=== PATIENT | female | born 1965 | race Caucasian/White ===

== ENCOUNTER 2021-04-30 15:37 | Emergency (ER) | payer BC ==
[2021-04-30] MEDS ORDERED: SODIUM CHLORIDE 0.9% 1,000 ML IV STA ×2 (16:11)
--- NOTE | 2021-04-30 16:36 | ED Physician Documentation ---
PD HPI ABD PAIN - Stated complaint Stated Complaint: ABD PX/NAUSEA - Chief complaint Chief Complaint: Abd Pain - History obtained from History obtained from: Patient - Additional information Additional information: 55-year-old woman with history of diverticulitis and colitis, hysterectomy, appendectomy, and tubal ligation presents with nausea starting yesterday. She was at the doctor's office for a consult regarding her localized breast cancer which she has not undergone any treatment yet. She was retching and then developed lower abdominal pain. Then she had 3 fairly normal bowel movements w hich has been followed by dark red blood per rectum not mixed with stool which has been continuous ever since. Review of Systems Ten Systems: 10 systems reviewed and negative Constitutional: reports: Chills, Sweats Throat: reports: Reviewed and negative Cardiac: reports: Reviewed and negative Respiratory: reports: Reviewed and negative PD PAST MEDICAL HISTORY - Past Medical History Neuro: None - Past Surgical History General: Appendectomy /TEST DESIGNER: Tubal ligation, Hysterectomy HEENT: Tonsil/Adenoidectomy - Present Medications Home Medications: Ambulatory Orders Medication Instructions Recorded Confirmed Zolpidem Tartrate [Ambien] 10 mg PO DAILY PM 03/19/21 04/30/21 Ciprofloxacin HCl [Cipro] 500 mg PO BID #20 tablet 04/30/21 HYDROcod/ACETAM 5/325 [[facility] 5/325] 1 - 2 tab PO Q6H PRN #15 tablet 04/30/21 Omeprazole 40 mg PO DAILY 04/30/21 04/30/21 Ondansetron Odt [Zofran] 4 mg TL Q6H PRN #10 tablet 04/30/21 metroNIDAZOLE [Flagyl] 500 mg PO TID 7 Days #30 tablet 04/30/21 - Allergies Allergies/Adverse Reactions: Allergies Allergy/AdvReac Type Severity Reaction Status Date / Time Corticosteroids Allergy Edema Verified 04/30/21 15:51 (Glucocorticoids) Sulfa (Sulfonamide Allergy Edema Verified 04/30/21 15:51 Antibiotics) - Social History Does the pt smoke?: No Smoking Status: Former smoker Does the pt drink ETOH?: No Does the pt have substance abuse?: No PD ED PE NORMAL - Vitals Vital signs reviewed: Yes - General General: Alert and oriented X 3, No acute distress - Cardiac Cardiac: RRR, No murmur - Respiratory Respiratory: No respiratory distress - Abdomen Abdomen: Normal bowel sounds, Soft, Non tender - Back Back: No CVA TTP, No spinal TTP - Derm Derm: Normal color, Warm and dry - Extremities Extremities: No edema, No calf tenderness / cord - Neuro Neuro: Alert and oriented X 3, Normal speech Results - Vitals Vitals: Vital Signs - 24 hr 04/30/21 04/30/21 04/30/21 15:45 17:16 18:10 Temperature 36.7 C 36.5 C Heart Rate 83 76 66 Respiratory 16 20 18 Rate Blood Pressure 120/38 L 116/51 L 112/59 L O2 Saturation 96 92 99 Oxygen O2 Source Room air - Labs Labs: Laboratory Tests 04/30/21 04/30/21 04/30/21 16:37 16:45 16:45 WBC 10.6 RBC 4.39 Hgb 13.7 Hct 42.2 MCV 96.1 MCH 31.2 H MCHC 32.5 RDW 13.2 Plt Count 309 MPV 9.6 Neut # (Auto) 7.1 H Lymph # (Auto) 2.4 Lyon # (Auto) 0.7 Eos # (Auto) 0.2 Baso # (Auto) 0.1 Absolute Nucleated RBC 0.00 Nucleated RBC % 0.0 Sodium 140 Potassium 3.8 Chloride 103 Carbon Dioxide 29 Anion Gap 8.0 BUN 9 Creatinine 0.6 Estimated GFR (MDRD) 103 Glucose 94 Calcium 9.3 Total Bilirubin 1.1 H AST 20 ALT 17 Alkaline Phosphatase 38 L Total Protein 7.2 Albumin 4.3 Globulin 2.9 Albumin/Globulin Ratio 1.5 Lipase 28 Urine Color YELLOW Urine Clarity CLEAR Urine pH 6.0 Ur Specific [place] 1.010 Urine Protein NEGATIVE Urine Glucose (UA) NEGATIVE Urine Ketones NEGATIVE Urine Occult Blood MODERATE H Urine Nitrite NEGATIVE Urine Bilirubin NEGATIVE Urine Urobilinogen 0.2 (NORMAL) Ur Leukocyte Esterase NEGATIVE Urine RBC 0-5 Urine WBC 6-10 H Ur Squamous Epith Cells MANY Squamous H Urine Bacteria Few Ur Microscopic Review INDICATED Urine Culture Comments NOT INDICATED Blood Type Antibody Screen 04/30/21 16:45 WBC RBC Hgb Hct MCV MCH MCHC RDW Plt Count MPV Neut # (Auto) Lymph # (Auto) Lyon # (Auto) Eos # (Auto) Baso # (Auto) Absolute Nucleated RBC Nucleated RBC % Sodium Potassium Chloride Carbon Dioxide Anion Gap BUN Creatinine Estimated GFR (MDRD) Glucose Calcium Total Bilirubin AST ALT Alkaline Phosphatase Total Protein Albumin Globulin Albumin/Globulin Ratio Lipase Urine Color Urine Clarity Urine pH Ur Specific [place] Urine Protein Urine Glucose (UA) Urine Ketones Urine Occult Blood Urine Nitrite Urine Bilirubin Urine Urobilinogen Ur Leukocyte Esterase Urine RBC Urine WBC Ur Squamous Epith Cells Urine Bacteria Ur Microscopic Review Urine Culture Comments Blood Type A POSITIVE Antibody Screen NEGATIVE PD MEDICAL DECISION MAKING - ED course ED course: 55-year-old woman with previously negative colonoscopy earlier this year presents with abdominal cramping and hematochezia. Found to have colitis on CT, will treat with Cipro and Flagyl pending PCP follow-up. Labs are reassuring despite the bleeding. I am prescribing a short course of short-acting opioid pain medication for this patient. I have reviewed the patients FIELD SERVICE REP and no concerning findings were noted. I have discussed that the opioids are for short term therapy only, and will not be refilled from the ED. Departure - Departure Disposition: Home, Self Care Clinical Impression: Colitis Condition: Good Record reviewed to determine appropriate education?: Yes Instructions: ED Gastroenteritis Bacterial Prescriptions: Ciprofloxacin HCl [Cipro] 500 mg PO BID #20 tablet metroNIDAZOLE [Flagyl] 500 mg PO TID 7 Days #30 tablet HYDROcod/ACETAM 5/325 [[facility] 5/325] 1 - 2 tab PO Q6H PRN #15 tablet PRN Reason: Pain Ondansetron Odt [Zofran] 4 mg TL Q6H PRN #10 tablet PRN Reason: Nausea / Vomiting Comments: Prescription sent electronically to [facility] in [place]. As discussed it looks like you have a case of colitis causing the cramps and bleeding. Hopefully this will get much better with the antibiotics but return if worsening or if not better after a couple of days. Do not drink alcohol while on the antibiotics as that will make you ill. Return if worsening. Follow-up with your primary care physician regardless, as discussed despite having a colonoscopy within the year this mandates at least reevaluation for repeat after 6 to 8 weeks after the colon has healed. I am prescribing a short course of narcotic pain medication for you. These are potentially dangerous and addictive medications that should be used carefully. These medications may constipate you. Take an axui-ajm-rvrzfyu stool softener (docusate) twice daily with plenty of water while taking these medications. If you go 24 hours without a bowel movement, take [id number] miralax, per package instructions. Do not drink or drive while taking these medications. If you received narcotic or sedating medications while in the emergency department, do not drive for 24 hours. Store this medication in a safe, secure place and out of reach of children. It is a violation of federal law to give or sell this medication to another person or to use in a manner other than prescribed. The ED will not refill narcotic prescriptions, including prescriptions lost or stolen. To dispose of unwanted medications: 1. [facility] at [address] in [place] has a medication drop box. They accept prescription medications (in pill form) Thursday through Thursday 9:00 a.m. to 5:00 p.m. 2. The [facility] [employer] accepts prescription medications (in pill form only) for disposal year round. Call for more information. 3. Contact the [facility] for the next [facility] sponsored prescription drug collection event. , [phone], or [phone]; Note that many narcotic pain relievers also contain Tylenol/acetaminophen. Please ensure that your total dose of acetaminophen from all sources does not exceed 3 g (3000 mg) per day.
[2021-04-30 16:50] LABS: BASOPHILS # (AUTO) 0.1 10^3/uL (0.0-0.1); BASOPHILS % (AUTO) 0.6 %; EOSINOPHILS # (AUTO) 0.2 10^3/uL (0.0-0.7); EOSINOPHILS % (AUTO) 1.9 %; HCT - HEMATOCRIT 42.2 % (37.0-47.0); HGB - HEMOGLOBIN 13.7 g/dL (12.0-16.0); LYMPHOCYTES # (AUTO) 2.4 10^3/uL (1.5-3.5); LYMPHOCYTES % (AUTO) 22.8 %; MEAN CORPUSCULAR HEMOGLOBIN 31.2 pg (27.0-31.0); MEAN CORPUSCULAR HGB CONC 32.5 g/dL (32.0-36.0); MEAN CORPUSCULAR VOLUME 96.1 fL (81.0-99.0); MEAN PLATELET VOLUME 9.6 fL (7.9-10.8); MONOCYTES # (AUTO) 0.7 10^3/uL (0.0-1.0); MONOCYTES % (AUTO) 6.8 %; NEUTROPHILS # (AUTO) 7.1 10^3/uL (1.5-6.6); NEUTROPHILS % (AUTO) 67.5 %; PLT - PLATELET COUNT 309 10^3/uL (130-450); RED BLOOD COUNT 4.39 10^6/uL (4.20-5.40); RED CELL DISTRIBUTION WIDTH 13.2 % (12.0-15.0); WHITE BLOOD COUNT 10.6 x10^3/uL (4.8-10.8)
[2021-04-30 16:51] LABS: BILIRUBIN,URINE NEGATIVE (NEGATIVE); GLUCOSE, URINE (UA) NEGATIVE (NEGATIVE); KETONES,URINE (UA) NEGATIVE (NEGATIVE); LEUKOCYTE ESTERASE, URINE NEGATIVE (NEGATIVE); NITRITE,URINE NEGATIVE (NEGATIVE); OCCULT BLOOD,URINE MODERATE (NEGATIVE); PROTEIN,URINE NEGATIVE (NEGATIVE); UROBILINOGEN,URINE 0.2 (NORMAL) E.U./dL (NORMAL)
[2021-04-30 16:52] LABS: CLARITY,URINE CLEAR (CLEAR)
[2021-04-30] MEDS ORDERED: IOVERSOL 320 100 ML VIAL IVP ONE ×2 (17:00→19:19)
[2021-04-30] MEDS ORDERED: HYDROmorphone 1 MG/ML CARPUJECT IVP STA (17:01)
[2021-04-30] MEDS ORDERED: ONDANSETRON 4 MG/2 ML VIAL IVP STA (17:01)
[2021-04-30 17:04] LABS: ALBUMIN 4.3 g/dL (3.2-5.5); ALBUMIN/GLOBULIN RATIO 1.5 (1.0-2.2); BILIRUBIN,TOTAL 1.1 mg/dL (0.2-1.0); CALCIUM 9.3 mg/dL (8.5-10.3); CREATININE 0.6 mg/dL (0.4-1.0); POTASSIUM 3.8 mmol/L (3.5-5.0); TOTAL PROTEIN 7.2 g/dL (6.7-8.2)
[2021-04-30 17:06] LABS: BACTERIA,URINE Few /HPF (None Seen); RBC,URINE 0-5 /HPF (0-5); SQUAMOUS EPITHELIAL CELL,UR MANY Squamous (<= Few)
[2021-04-30 18:11] VITALS: BP 112/59
--- NOTE | 2021-04-30 18:19 | CT Report ---
PROCEDURE: Abdomen/Pelvis W INDICATIONS: IV onlly, low abd pain and hematochezia CONTRAST: IV CONTRAST: Optiray 320 ml: 100 PO CONTRAST: *NO PO CONTRAST TECHNIQUE: After the administration of IV contrast, 5 mm thick sections acquired from the diaphragms to the symp hysis. 5 mm thick coronal and sagittal reformats were acquired. For radiation dose reduction, the f ollowing was used: automated exposure control, adjustment of mA and/or kV according to patient size. COMPARISON: None. FINDINGS: Image quality: Excellent. ABDOMEN: Lung bases: Lung bases are clear. Heart size is normal. Solid organs: Liver and spleen are normal in size and enhancement. Gallbladder wall does not appear thickened. Biliary system is non dilated. Pancreas enhances normally. No adrenal nodules. Kidn eys demonstrate normal size and enhancement, without hydronephrosis. Peritoneum and bowel: There is diffuse moderate wall thickening seen involving the descending colon a nd the proximal sigmoid colon. Minimal surrounding inflammatory changes are seen. The more proximal c olon is unremarkable. No dilated loops of small bowel can be seen. Appendectomy clips are seen. Nodes and vessels: No retroperitoneal or mesenteric adenopathy by size criteria. Aorta and inferior vena cava are normal in size. Miscellaneous: No ventral hernias. PELVIS: Genitourinary: Bladder wall thickness is normal. Miscellaneous: No inguinal hernias or adenopathy. Bones: No suspicious bony lesions. No vertebral body compression fractures. IMPRESSION: Diffuse moderate wall thickening is seen involving the descending colon and the proximal sigmoid colo n. Please correlate with potential infectious or inflammatory causes of colitis. Reviewed by: Brady Kramer MD on 04/30/2021 5:18 PM [facility] Approved by: Brady Kramer MD on 04/30/2021 5:18 PM AKDT Station ID: [id number]
[2021-04-30] MEDS ORDERED: metroNIDAZOLE 250 MG TABLET PO STA (18:29)
[2021-04-30] MEDS ORDERED: CIPROFLOXACIN 250 MG TABLET PO STA (18:29)
== END 2021-04-30 18:55 | disposition home or self-care (01) ==
LOC: ED 15:37
DX: K52.9 Noninfective gastroenteritis and colitis, unspecified (principal); Z87.891 Personal history of nicotine dependence
CPT/HCPCS: 36415; 74177; 80053; 81001; 83690; 85025; 86850; 86900; 86901; 96361; 96374; 96375; 99284; A9270; J1170; Q9967; 81003; 87086

== ENCOUNTER 2021-06-07 08:56 | Outpatient (CLI) | payer BC ==
[2021-06-07] MEDS ORDERED: SINCALIDE IV ONE (13:42)
[2021-06-07] MEDS ORDERED: SODIUM CHLORIDE 0.9% IV ONE (13:42)
--- NOTE | 2021-06-07 13:47 | Nuclear Medicine Report ---
PROCEDURE: Hepatobiliary HIDA w/ Rx INDICATIONS: RUQ ABDOMINAL PAIN RADIOPHARMACEUTICAL: 5.5 mCi Tc-99m meprofenin i.v. and 1.18 g sincalide i.v. TECHNIQUE: Following intravenous administration of Tc-99m meprofenin, sequential anterior abdominal images were obtained through 60 minutes. To evaluate the contractile response of the gallbladder in response to Cholecystokinin (CCK), 1.18 microgram sincalide (0.02 g/kg) was administered by slow int ravenous infusion approximately 60 minutes after the administration of the radiopharmaceutical. Sequ ential imaging was continued for 30 minutes after the start of CCK infusion. Gallbladder ejection fr action was calculated. COMPARISON: None. FINDINGS: Biliary scan: There is normal tracer uptake and excretion by the liver. There is normal visualizati on of the intrahepatic ducts, common bile duct, and gallbladder. There is normal tracer transit into the duodenum. CCK stimulation: There is normal contractile response of the gallbladder to CCK infusion. The calcu lated gallbladder ejection fraction is 98%; normal values are above 35%. IMPRESSION: 1. Normal biliary imaging study. 2. Normal contractile response of gallbladder to CCK infusion.. Reviewed by: Naren Jeffrey MD on 06/07/2021 1:46 PM PST Approved by: Naren Jeffrey MD on 06/07/2021 1:46 PM PST Station ID: [id number]
== END 2021-06-07 08:57 | disposition home or self-care (01) ==
LOC: DI 08:56
PROVIDERS: ATTEND Surgery
DX: R10.11 Right upper quadrant pain (principal)
CPT/HCPCS: 78227; J7040

== ENCOUNTER 2021-07-01 08:00 | Outpatient (CLI) | payer BC ==
[2021-07-01 13:02] LABS: B. PARAPERTUSSIS- RESP PCR PAN NOT DETECTED; B. PERTUSSIS- RESP PCR PANEL NOT DETECTED; C. PNEUMONIAE- RESP PCR PANEL NOT DETECTED; CORONAVIRUS 229E-RESP PCR NOT DETECTED; CORONAVIRUS HKU1-RESP PCR NOT DETECTED; CORONAVIRUS NL63-RESP PCR NOT DETECTED; CORONAVIRUS OC43-RESP PCR NOT DETECTED; HUMAN METAPNEUMOVIRUS NOT DETECTED; INFLUENZA A- RESP PCR PANEL NOT DETECTED; INFLUENZA B - RESP PCR PANEL NOT DETECTED; M. PNEUMONIAE- RESP PCR PANEL NOT DETECTED; PARAINFLUENZA VIRUS 1 NOT DETECTED; PARAINFLUENZA VIRUS 2 NOT DETECTED; PARAINFLUENZA VIRUS 3 NOT DETECTED; PARAINFLUENZA VIRUS 4 NOT DETECTED; RHINOVIRUS/ENTEROVIRUS NOT DETECTED; RSV- RESP PCR PANEL NOT DETECTED; SARS-CoV-2 -RESP PCR PANEL NOT DETECTED
== END 2021-07-01 23:59 | disposition home or self-care (01) ==
LOC: LAB.WCP 08:00
PROVIDERS: ATTEND Family Medicine
DX: Z00.00 Encounter for general adult medical examination without abnormal findings (principal); Z20.822 Contact with and (suspected) exposure to COVID-19
CPT/HCPCS: 0202U

== ENCOUNTER 2021-08-31 09:20 | Outpatient (CLI) | payer BC ==
[2021-08-31 14:11] LABS: BASOPHILS # (AUTO) 0.1 10^3/uL (0.0-0.1); BASOPHILS % (AUTO) 0.8 %; EOSINOPHILS # (AUTO) 0.3 10^3/uL (0.0-0.7); HCT - HEMATOCRIT 39.9 % (37.0-47.0); HGB - HEMOGLOBIN 12.8 g/dL (12.0-16.0); LYMPHOCYTES # (AUTO) 2.2 10^3/uL (1.5-3.5); LYMPHOCYTES % (AUTO) 32.6 %; MEAN CORPUSCULAR HEMOGLOBIN 30.5 pg (27.0-31.0); MEAN CORPUSCULAR HGB CONC 32.1 g/dL (32.0-36.0); MEAN PLATELET VOLUME 10.4 fL (7.9-10.8); MONOCYTES # (AUTO) 0.5 10^3/uL (0.0-1.0); MONOCYTES % (AUTO) 7.6 %; NEUTROPHILS # (AUTO) 3.6 10^3/uL (1.5-6.6); NEUTROPHILS % (AUTO) 53.8 %; PLT - PLATELET COUNT 310 10^3/uL (130-450); WHITE BLOOD COUNT 6.6 x10^3/uL (4.8-10.8)
[2021-08-31 14:35] LABS: ALBUMIN 4.3 g/dL (3.2-5.5); ALBUMIN/GLOBULIN RATIO 1.5 (1.0-2.2); ALKALINE PHOSPHATASE 34 IU/L (42-121); ALT ALANINE AMINOTRANSFERASE 23 IU/L (10-60); AST ASPARTATE AMINOTRANSFERASE 25 IU/L (10-42); BILIRUBIN,TOTAL 0.8 mg/dL (0.2-1.0); BUN - BLOOD UREA NITROGEN 12 mg/dL (6-20); CALCIUM 9.7 mg/dL (8.5-10.3); CARBON DIOXIDE - CO2 27 mmol/L (21-32); CHLORIDE 103 mmol/L (101-111); CHOL/HDL RATIO 2.2 (<4.4); CHOLESTEROL 236 mg/dL; CREATININE 0.6 mg/dL (0.4-1.0); GFR - MDRD 103 (>89); GLUCOSE 87 mg/dL (70-100); HDL CHOLESTEROL 106 mg/dL; POTASSIUM 4.1 mmol/L (3.5-5.0); SODIUM 142 mmol/L (135-145); TOTAL PROTEIN 7.2 g/dL (6.7-8.2); TRIGLYCERIDES 35 mg/dL
[2021-08-31 14:47] LABS: THYROID STIMULATING HORMONE 1.44 uIU/mL (0.34-5.60)
[2021-08-31 14:49] LABS: ESTIMATED AVERAGE GLUCOSE 111 mg/dL (70-100); HEMOGLOBIN A1c% 5.5 % (4.27-6.07)
== END 2021-08-31 09:21 | disposition home or self-care (01) ==
LOC: LAB.N 09:20
PROVIDERS: ATTEND Family Medicine
DX: E11.9 Type 2 diabetes mellitus without complications (principal); N95.1 Menopausal and female climacteric states
CPT/HCPCS: 36415; 80053; 80061; 83001; 83036; 83721; 84443; 85025

== ENCOUNTER 2021-09-09 07:53 | Outpatient (CLI) | payer BC ==
--- NOTE | 2021-09-09 08:28 | DEXA Report ---
PROCEDURE: Dexa Spine and/or Hip INDICATIONS: SCREENING FOR OSTEOPORSIS TECHNIQUE: Dual energy x-ray absorptiometry (DXA) was performed on a [employer] System. Regions measur ed are the AP Spine, femoral neck, and if needed forearm. COMPARISON: None. FINDINGS: Lumbar Spine: Bone Mineral Density 1.077 g/cm/cm,T score -0.9, normal Left Femoral Neck: Bone Mineral Density 0.697 g/cm/cm, T score -2.5, osteoporosis Total: Bone Mineral Density 0.744 g/cm/cm, T score -2.1, osteopenia. (T score greater or equal to -1.0: NORMAL) (T score from -1.1 to -2.4: OSTEOPENIA) (T score less than or equal to -2.5 to: OSTEOPOROSIS) Impression: Bone mineral density as detailed above. Patients with diagnosis of osteoporosis or osteopenia should have regular bone mineral density assess ment. For those eligible for Medicare, routine testing is allowed once every 2 years. Testing frequ ency can be increased for patients who have rapidly progressing disease or for those who are receivin g medical therapy to restore bone mass. Reviewed by: Kojo Reina MD on 09/09/2021 8:26 AM PST Approved by: Kojo Reina MD on 09/09/2021 8:26 AM PST Station ID: [id number]
== END 2021-09-09 07:54 | disposition home or self-care (01) ==
LOC: DI 07:53
PROVIDERS: ATTEND Nurse Practitioner Family
DX: Z13.820 Encounter for screening for osteoporosis (principal); M81.0 Age-related osteoporosis without current pathological fracture

== ENCOUNTER 2021-12-13 16:51 | Outpatient (CLI) | payer BC ==
--- NOTE | 2021-12-13 17:49 | XRAY Report ---
PROCEDURE: Chest 2 View X-Ray INDICATIONS: ATYPICAL CHEST PAIN TECHNIQUE: 2 view(s) of the chest. COMPARISON: None. FINDINGS: Surgical changes and devices: Fusion hardware in visualized lower cervical spine is seen. Lungs and pleura: No pleural effusions or pneumothorax. Lungs are clear. Mediastinum: Mediastinal contours are normal. Heart size is normal. Bones and chest wall: No suspicious bony abnormalities. Soft tissues appear unremarkable. IMPRESSION: No acute cardiopulmonary pathology. Reviewed by: Juvenal Roche MD on 12/13/2021 5:47 PM PDT Approved by: Juvenal Roche MD on 12/13/2021 5:47 PM PDT Station ID: [id number]
== END 2021-12-13 16:52 | disposition home or self-care (01) ==
LOC: DI 16:51
PROVIDERS: ATTEND Family Medicine
DX: R07.89 Other chest pain (principal)

== ENCOUNTER 2022-07-18 08:00 | Outpatient (CLI) | payer BC ==
[2022-07-18 21:02] LABS: BILIRUBIN,URINE NEGATIVE (NEGATIVE); GLUCOSE, URINE (UA) NEGATIVE (NEGATIVE); KETONES,URINE (UA) NEGATIVE (NEGATIVE); LEUKOCYTE ESTERASE, URINE TRACE (NEGATIVE); NITRITE,URINE NEGATIVE (NEGATIVE); OCCULT BLOOD,URINE TRACE-INTA (NEGATIVE); PH,URINE 5.5 PH (5.0-7.5); PROTEIN,URINE NEGATIVE (NEGATIVE); UROBILINOGEN,URINE 0.2 (NORMAL) E.U./dL (NORMAL)
[2022-07-18 21:05] LABS: CLARITY,URINE HAZY (CLEAR)
[2022-07-18 21:17] LABS: BACTERIA,URINE Rare /HPF (None Seen); RBC,URINE 0-5 /HPF (0-5); SQUAMOUS EPITHELIAL CELL,UR FEW Squamous (<= Few)
== END 2022-07-18 23:59 | disposition home or self-care (01) ==
LOC: LAB.WCP 08:00
PROVIDERS: ATTEND Nurse Practitioner Family
DX: R30.0 Dysuria (principal)
CPT/HCPCS: 81001; 87077; 87086

== ENCOUNTER 2022-07-28 16:40 | Outpatient (CLI) | payer BC ==
[2022-07-28] MEDS ORDERED: iohexoL-300 100 ML VIAL ONE (16:45)
[2022-07-28] MEDS ORDERED: iohexoL-300 100 ML VIAL IVP ONE (20:53)
--- NOTE | 2022-07-29 12:32 | CT Report ---
PROCEDURE: SOFT TISSUE NECK W INDICATIONS: ABN MRI CONTRAST: 100mL Omni 300 TECHNIQUE: After the administration of intravenous contrast, 3.0 mm axial sections acquired from the sella to th e aortic arch. Additional oblique axial 3.0 mm sections acquired through the pharynx. 3 mm thick co eliel reformats were generated. For radiation dose reduction, the following was used: automated exp osure control, adjustment of mA and/or kV according to patient size. COMPARISON: None. FINDINGS: Image quality: Excellent. Lymph nodes: No enlarged lymph nodes seen throughout the neck. Vessels: Visualized vasculature appears patent. Neck spaces: The oropharynx, nasopharynx, and pharynx demonstrate no mucosal lesions. The vocal cor ds, false vocal cords, pyriform sinuses, epiglottis, vallecula, and tongue base all appear normal. E xtramucosal spaces appear unremarkable. Glands: The parotid and submandibular glands appear normal. The thyroid is normal in size and there are no incidental findings. Miscellaneous: Visualized brain and orbits appear normal. Lung apices appear clear. Superficial so ft tissues appear normal. Bones: No suspicious bony lesions. Visualized sinuses and mastoids appear unremarkable. Cervical s pine fixation hardware is seen anteriorly at the C5-C6 level. A disc spacer is also seen at this leve l. No findings of hardware failure or hardware loosening can be seen. Focal C6-C7 degenerative change is seen, with moderate disc space narrowing and endplate irregularity and sclerosis. Posteriorly dir ected endplate osteophytes are seen. IMPRESSION: No masses are seen. No enlarged lymph nodes are seen. Additional findings: Unremarkable C5-C6 postoperative hardware Focal C6-C7 degenerative change Reviewed by: Brady Kramer MD on 07/29/2022 11:31 AM [facility] Approved by: Brady Kramer MD on 07/29/2022 11:31 AM [facility] Station ID: [id number]
== END 2022-07-28 16:41 | disposition home or self-care (01) ==
LOC: DI 16:40
PROVIDERS: ATTEND Registered Nurse
DX: R93.89 Abnormal findings on diagnostic imaging of other specified body structures (principal)
CPT/HCPCS: 70491; Q9967

== ENCOUNTER 2022-08-11 07:26 | Day surgery (SDC) | payer BC ==
--- NOTE | 2022-08-11 07:15 | ANESTHESIA ---
Pre-Anesthesia VS, & Labs - Diagnosis uncontrolled GERD - Procedure EGD Height: 5 ft 1 in - NPO >8 hours - Is Patient ?: No - Lab Results Lab results reviewed: Yes Home Medications and Allergies Home Medications: Ambulatory Orders Anastrozole 1 mg PO DAILY 08/08/22 Zolpidem Tartrate [Ambien] 10 mg PO DAILY PM 03/19/21 Omeprazole 40 mg PO DAILY 04/30/21 Anastrozole 1 mg PO DAILY 08/08/22 Allergies/Adverse Reactions: Allergies Allergy/AdvReac Type Severity Reaction Status Date / Time Corticosteroids Allergy Edema Verified 04/30/21 15:51 (Glucocorticoids) Sulfa (Sulfonamide Allergy Edema Verified 04/30/21 15:51 Antibiotics) Anes History & Medical History - Anesthetic History Anesthesia Complications: reports: No previous complications Family history of Anesthesia Complications: Denies Family history of Malignant Hyperthermia: Denies - Medical History Cardiovascular: reports: None Pulmonary: reports: Asthma Gastrointestinal: reports: Ulcers, Hiatal hernia, Diverticulitis, Cholelithiasis, Other Urinary: reports: None Neuro: reports: None Musculoskeletal: reports: Osteoarthritis Endocrine/Autoimmune: reports: None Blood Disorders: reports: None Skin: reports: None Smoking Status: Former smoker - Surgical History General: reports: Appendectomy Eyes Ears Nose Throat (EENT): reports: Tonsil/Adenoidectomy Gynecologic: reports: Tubal ligation, Hysterectomy, Other Orthopedic: reports: Spine surgery Exam General: Alert, Oriented x3, Cooperative Plan Anesthesia Type: Total IV Consent for Procedure(s) Verified and Reviewed: Yes Code Status: Attempt Resuscitation ASA classification: 2-Mild systemic disease Is this case an emergency?: No
[2022-08-11] MEDS ORDERED: LACTATED RINGERS 1,000 ML IV ONE (07:30)
[2022-08-11] MEDS ORDERED: LIDOCAINE-PF 2% 10 ML AMP SUBQ ONE (08:08)
[2022-08-11] MEDS ORDERED: MIDAZOLAM 2 MG/2 ML VIAL ONE (08:08)
[2022-08-11] MEDS ORDERED: PROPOFOL 200 MG/20 ML VIAL IVP ONE (08:09)
--- NOTE | 2022-08-11 08:40 | ANESTHESIA POST OP EVALUATION ---
Anesthesia Post Eval - Post Anesthesia Eval Vitals: Last Vital Signs Temp 36.4 C L 08/11/22 08:35 Pulse 75 08/11/22 08:35 Resp 13 08/11/22 08:35 BP 99/45 L 08/11/22 08:35 Pulse Ox 98 08/11/22 08:35 O2 Flow Rate CV Function Including HR & BP: Stable Pain Control: Satisfactory Nausea & Vomiting: Negative Mental Status: Baseline Respiratory Status: Airway Patent Hydration Status: Satisfactory Anesthesia Complications: None
[2022-08-11] MEDS ORDERED: LACTATED RINGERS 500 ML IV ONE (08:43)
[2022-08-11 09:03] VITALS: BP 113/61
== END 2022-08-11 07:27 | disposition home or self-care (01) ==
LOC: SDS 07:26
PROVIDERS: ATTEND Surgery
PROC: 0DB78ZX Excision of Stomach, Pylorus, Via Natural or Artificial Opening Endoscopic, Diagnostic (ICD-10-PCS; principal; 2022-08-11 08:30)
DX: K21.9 Gastro-esophageal reflux disease without esophagitis (principal); R10.13 Epigastric pain; Z87.891 Personal history of nicotine dependence; K29.50 Unspecified chronic gastritis without bleeding; K25.9 Gastric ulcer, unspecified as acute or chronic, without hemorrhage or perforation
CPT/HCPCS: 43239; J7120

== ENCOUNTER 2022-08-15 16:36 | Outpatient (CLI) | payer BC | END 2022-08-15 23:59 | disposition home or self-care (01) | LOC: LAB 16:36 | PROVIDERS: ATTEND Nurse Practitioner Family | DX: R31.9 Hematuria, unspecified (principal) | CPT/HCPCS: 87086 ==

== ENCOUNTER 2022-08-18 08:00 | Outpatient (CLI) | payer BC ==
[2022-08-18 17:43] LABS: BILIRUBIN,URINE NEGATIVE (NEGATIVE); GLUCOSE, URINE (UA) NEGATIVE (NEGATIVE); KETONES,URINE (UA) NEGATIVE (NEGATIVE); LEUKOCYTE ESTERASE, URINE TRACE (NEGATIVE); NITRITE,URINE NEGATIVE (NEGATIVE); OCCULT BLOOD,URINE SMALL (NEGATIVE); PROTEIN,URINE NEGATIVE (NEGATIVE); UROBILINOGEN,URINE 0.2 (NORMAL) E.U./dL (NORMAL)
[2022-08-18 17:50] LABS: CLARITY,URINE CLEAR (CLEAR)
[2022-08-18 18:01] LABS: BACTERIA,URINE Rare /HPF (None Seen); RBC,URINE 0-5 /HPF (0-5); SQUAMOUS EPITHELIAL CELL,UR RARE Squamous (<= Few); WBC,URINE 0-3 /HPF (0-5)
== END 2022-08-18 23:59 | disposition home or self-care (01) ==
LOC: LAB.WCP 08:00
PROVIDERS: ATTEND Nurse Practitioner Family
DX: R30.0 Dysuria (principal)
CPT/HCPCS: 81001; 87086

== ENCOUNTER 2022-09-18 08:21 | Outpatient (CLI) | payer BC ==
[2022-09-18 09:01] LABS: BASOPHILS # (AUTO) 0.1 10^3/uL (0.0-0.1); BASOPHILS % (AUTO) 0.9 %; EOSINOPHILS # (AUTO) 0.2 10^3/uL (0.0-0.7); EOSINOPHILS % (AUTO) 3.6 %; LYMPHOCYTES # (AUTO) 1.8 10^3/uL (1.5-3.5); LYMPHOCYTES % (AUTO) 31.4 %; MEAN CORPUSCULAR HEMOGLOBIN 30.7 pg (27.0-31.0); MEAN CORPUSCULAR HGB CONC 31.7 g/dL (32.0-36.0); MEAN CORPUSCULAR VOLUME 96.7 fL (81.0-99.0); MEAN PLATELET VOLUME 9.5 fL (7.9-10.8); MONOCYTES # (AUTO) 0.4 10^3/uL (0.0-1.0); MONOCYTES % (AUTO) 7.9 %; NEUTROPHILS # (AUTO) 3.1 10^3/uL (1.5-6.6); PLT - PLATELET COUNT 304 10^3/uL (130-450); RED BLOOD COUNT 4.24 10^6/uL (4.20-5.40); RED CELL DISTRIBUTION WIDTH 12.9 % (12.0-15.0); WHITE BLOOD COUNT 5.6 x10^3/uL (4.8-10.8)
[2022-09-18 09:21] LABS: ALBUMIN 4.1 g/dL (3.2-5.5); ALBUMIN/GLOBULIN RATIO 1.3 (1.0-2.2); ALKALINE PHOSPHATASE 41 IU/L (42-121); ALT ALANINE AMINOTRANSFERASE 17 IU/L (10-60); AST ASPARTATE AMINOTRANSFERASE 22 IU/L (10-42); BILIRUBIN,TOTAL 0.4 mg/dL (0.2-1.0); BUN - BLOOD UREA NITROGEN 19 mg/dL (6-20); CALCIUM 9.3 mg/dL (8.5-10.3); CARBON DIOXIDE - CO2 28 mmol/L (21-32); CHLORIDE 106 mmol/L (101-111); CHOL/HDL RATIO 2.8 (<4.4); CHOLESTEROL 199 mg/dL; CREATININE 0.7 mg/dL (0.4-1.0); GFR - MDRD 86 (>89); GLUCOSE 98 mg/dL (70-100); HDL CHOLESTEROL 71 mg/dL; LDL CHOLESTEROL,CALCULATED 110 mg/dL; LDL/HDL RATIO 1.5 (<4.4); POTASSIUM 4.5 mmol/L (3.5-5.0); SODIUM 141 mmol/L (135-145); TOTAL PROTEIN 7.3 g/dL (6.7-8.2); TRIGLYCERIDES 91 mg/dL; VLDL CHOLESTEROL 18 mg/dL
[2022-09-18 09:59] LABS: ESTIMATED AVERAGE GLUCOSE 111 mg/dL (70-100); HEMOGLOBIN A1c% 5.5 % (4.27-6.07)
--- NOTE | 2022-09-18 12:31 | DEXA Report ---
PROCEDURE: Dexa Spine and/or Hip INDICATIONS: DISORDERS OF BONE DENSITY TECHNIQUE: Dual energy x-ray absorptiometry (DXA) was performed on a [employer] System. Regions measur ed are the AP Spine, femoral neck, and if needed forearm. COMPARISON: 09/09/2021 FINDINGS: Lumbar Spine: Bone Mineral Density 1.050 g/cm/cm,T score -1.1, osteopenia, change from previous -2.5% Left Femoral Neck: Bone Mineral Density 0.648 g/cm/cm, T score -2.8, osteoporosis, change from previous not calculated Left Hip: Bone Mineral Density 0.718 g/cm/cm,T score -2.3, osteopenia, change from previous -3.5% (T score greater or equal to -1.0: NORMAL) (T score from -1.1 to -2.4: OSTEOPENIA) (T score less than or equal to -2.5 to: OSTEOPOROSIS) Impression: 1. Osteoporosis of the left femoral neck puts the patient at a high-risk of fracture. 2. Interval, statistically insignificant decrease of bone mineral density in the lumbar spine and lef t hip compared to the prior study. Patients with diagnosis of osteoporosis or osteopenia should have regular bone mineral density assess ment. For those eligible for Medicare, routine testing is allowed once every 2 years. Testing frequ ency can be increased for patients who have rapidly progressing disease or for those who are receivin g medical therapy to restore bone mass. Reviewed by: Annalise Lemus MD on 09/18/2022 12:29 PM PDT Approved by: Annalise Lemus MD on 09/18/2022 12:29 PM PDT Station ID: [id number]
[2022-09-18 15:44] LABS: THYROID STIMULATING HORMONE 1.68 uIU/mL (0.34-5.60)
== END 2022-09-18 08:22 | disposition home or self-care (01) ==
LOC: DI 08:21
PROVIDERS: ATTEND Family Medicine
DX: Z00.00 Encounter for general adult medical examination without abnormal findings (principal); Z86.32 Personal history of gestational diabetes; R31.9 Hematuria, unspecified; M81.0 Age-related osteoporosis without current pathological fracture
CPT/HCPCS: 36415; 80053; 80061; 83036; 83721; 84443; 85025; 87086

== ENCOUNTER 2023-02-13 14:20 | Emergency (ER) | payer BC ==
[2023-02-13] MEDS ORDERED: KETOROLAC 15 MG/ML VIAL IVP STA (14:34)
--- NOTE | 2023-02-13 14:34 | ED Physician Documentation ---
PD HPI CHEST PAIN - Stated complaint Stated Complaint: CHEST PX - History obtained from History obtained from: Patient - Additional information Additional information: 57-year-old woman with history of remote tobacco abuse quitting in 2010, history of breast cancer in situ, lobular carcinoma with lumpectomy 2 years ago still on anastrozole. No history of heart problems. Starting last night she developed a stabbing substernal pain radiating under the left breast which this morning started radiating to the back. She is not short of breath with it. Denies pedal edema or calf pain. No recent travel. No history of thromboembolic dis ease. PD PAST MEDICAL HISTORY - Past Medical History Cardiovascular: None Respiratory: Asthma Neuro: None Endocrine/Autoimmune: None GI: Ulcers, Hiatal hernia, Diverticulitis, Cholelithiasis, Other CONCESSION ATTENDANT: Breast cancer : None HEENT: None Psych: None Musculoskeletal: Osteoarthritis Derm: None - Past Surgical History Past Surgical History: Yes General: Appendectomy Ortho: Spine surgery /CONCESSION ATTENDANT: Tubal ligation, Hysterectomy, Other HEENT: Tonsil/Adenoidectomy - Present Medications Home Medications: Ambulatory Orders Medication Instructions Recorded Confirmed Zolpidem Tartrate [Ambien] 10 mg PO DAILY PM 03/19/21 10/10/22 Omeprazole 40 mg PO DAILY 04/30/21 10/10/22 Anastrozole 1 mg PO DAILY 08/08/22 10/10/22 - Allergies Allergies/Adverse Reactions: Allergies Allergy/AdvReac Type Severity Reaction Status Date / Time Corticosteroids Allergy Edema Verified 02/13/23 14:35 (Glucocorticoids) Sulfa (Sulfonamide Allergy Edema Verified 02/13/23 14:35 Antibiotics) - Social History Does the pt smoke?: No Smoking Status: Former smoker Does the pt drink ETOH?: No Does the pt have substance abuse?: No - Immunizations Immunizations are current?: Yes PD ED PE NORMAL - Vitals Vital signs reviewed: Yes - General General: Alert and oriented X 3, No acute distress - Neck Neck: Supple, no meningeal sign, No bony TTP - Cardiac Cardiac: RRR, No murmur - Respiratory Respiratory: No respiratory distress, Clear bilaterally - Abdomen Abdomen: Non tender - Extremities Extremities: No edema, No calf tenderness / cord - Neuro Neuro: Alert and oriented X 3, Normal speech Results - Vitals Vitals: Vital Signs - 24 hr 02/13/23 02/13/23 02/13/23 14:31 15:46 16:33 Temperature 36.3 C L Heart Rate 71 63 62 Respiratory 16 18 18 Rate Blood Pressure 134/77 H 103/64 124/74 O2 Saturation 100 100 100 Oxygen O2 Source Room air - EKG (time done) 1437 EKG releavant findings:: EKG personally interpreted by author of this note. Relevant findings are: Rate: Rate (enter#) (60) Rhythm: NSR Gonzales: Normal Intervals: Normal OK QRS: Normal Ischemia: Normal ST segments. No: ST elevation c/w ischemia, ST depression, Hyperacute T waves - Labs Labs: Laboratory Tests 02/13/23 02/13/23 02/13/23 14:40 14:40 14:59 WBC 6.8 RBC 4.25 Hgb 13.1 Hct 40.4 MCV 95.1 MCH 30.8 MCHC 32.4 RDW 13.2 Plt Count 321 MPV 9.9 Neut # (Auto) 3.8 Lymph # (Auto) 2.3 Cole # (Auto) 0.5 Eos # (Auto) 0.1 Baso # (Auto) 0.0 Absolute Nucleated RBC 0.00 Nucleated RBC % 0.0 D-Dimer < 200.0 L Sodium 137 Potassium 3.8 Chloride 102 Carbon Dioxide 28 Anion Gap 7.0 BUN 13 Creatinine 0.7 Estimated GFR (MDRD) 86 L Glucose 96 Calcium 9.7 Total Bilirubin 0.4 AST 15 ALT 11 Alkaline Phosphatase 40 L Troponin I High Sens < 2.3 L Total Protein 7.4 Albumin 4.5 Globulin 2.9 Albumin/Globulin Ratio 1.6 Lipase 128 H - Rads (name of study) 1v cxr- NAD Relevant Findings:: Final report received, EMP independent interpretation of test RUQ sono-fatty liver, NAD Relevant Findings:: Final report received PD Medical Decision Making - ED course ED course: 57-year-old woman presents to the walk-in clinic for evaluation of chest pain starting last night with some radiation to the back. ACS is considered but EKG is nonischemic and troponin is negative with the time course that would suggest no need for further work-up for that at this juncture. PE/dissection or considered but with normal D-dimer and negative chest x-ray as well as feeling fairly comfortable this seems relatively farfetched and note made that her blood pressure is not abnormal. She does have a mildly elevated lipase and mild pancreatitis or other causes mildly elevated lipase could cause similar symptoms. She has known ulcer disease and is on a PPI. She does not drink excessively. We will check an ultrasound to evaluate for gallstones. Ultrasound was negative. She was relatively pain-free after dose of Toradol. Discussed a clear liquid diet for a day and follow-up as well as return precautions. Departure - Departure Disposition: 01 Home, Self Care Clinical Impression: Chest pain Qualifiers: Chest pain type: unspecified Qualified Code(s): R07.9 - Chest pain, unspecified Condition: Good Record reviewed to determine appropriate education?: Yes Instructions: ED Chest Pain NonCardiac, ED Pancreatitis Comments: Diagnostic testing showed no issue of heart issue today or evidence of blood clots. He did have a mild elevation of your lipase with no gallstones. Abstain from alcohol and do a clear liquid diet for the next 24 hours. Follow-up with your primary care physician, next available appointment and return for new or worsening symptoms. Forms: PCP List Discharge Date/Time: 02/13/23 16:40
[2023-02-13 14:37] VITALS: O2SAT 100
[2023-02-13 14:49] LABS: BASOPHILS % (AUTO) 0.4 %; EOSINOPHILS # (AUTO) 0.1 10^3/uL (0.0-0.7); EOSINOPHILS % (AUTO) 2.1 %; HCT - HEMATOCRIT 40.4 % (37.0-47.0); HGB - HEMOGLOBIN 13.1 g/dL (12.0-16.0); LYMPHOCYTES # (AUTO) 2.3 10^3/uL (1.5-3.5); LYMPHOCYTES % (AUTO) 34.2 %; MEAN CORPUSCULAR HEMOGLOBIN 30.8 pg (27.0-31.0); MEAN CORPUSCULAR HGB CONC 32.4 g/dL (32.0-36.0); MEAN CORPUSCULAR VOLUME 95.1 fL (81.0-99.0); MEAN PLATELET VOLUME 9.9 fL (7.9-10.8); MONOCYTES # (AUTO) 0.5 10^3/uL (0.0-1.0); MONOCYTES % (AUTO) 7.5 %; NEUTROPHILS # (AUTO) 3.8 10^3/uL (1.5-6.6); NEUTROPHILS % (AUTO) 55.5 %; PLT - PLATELET COUNT 321 10^3/uL (130-450); RED BLOOD COUNT 4.25 10^6/uL (4.20-5.40); RED CELL DISTRIBUTION WIDTH 13.2 % (12.0-15.0); WHITE BLOOD COUNT 6.8 x10^3/uL (4.8-10.8)
--- NOTE | 2023-02-13 15:13 | XRAY Report ---
PROCEDURE: Chest 1 View X-Ray INDICATIONS: Chest Pain TECHNIQUE: One view of the chest was acquired. COMPARISON: 12/13/2021 FINDINGS: Surgical changes and devices: None. Lungs and pleura: No pleural effusions or pneumothorax. Lungs are clear. Mediastinum: Mediastinal contours appear normal. Heart size is normal. Bones and chest wall: No suspicious bony lesions. Overlying soft tissues appear unremarkable. IMPRESSION: No acute cardiopulmonary process. Reviewed by: Morris Sandoval MD on 02/13/2023 3:11 PM PDT Approved by: Morris Sandoval MD on 02/13/2023 3:11 PM PDT Station ID: [id number]
[2023-02-13 15:14] LABS: TROPONIN I HIGH SENSITIVITY < 2.3 ng/L (2.3-14.8)
[2023-02-13 15:18] LABS: ALBUMIN 4.5 g/dL (3.2-5.5); ALBUMIN/GLOBULIN RATIO 1.6 (1.0-2.2); ALKALINE PHOSPHATASE 40 IU/L (42-121); ALT ALANINE AMINOTRANSFERASE 11 IU/L (10-60); AST ASPARTATE AMINOTRANSFERASE 15 IU/L (10-42); BILIRUBIN,TOTAL 0.4 mg/dL (0.2-1.0); BUN - BLOOD UREA NITROGEN 13 mg/dL (6-20); CALCIUM 9.7 mg/dL (8.5-10.3); CARBON DIOXIDE - CO2 28 mmol/L (21-32); CHLORIDE 102 mmol/L (101-111); CREATININE 0.7 mg/dL (0.6-1.3); GFR - MDRD 86 (>89); GLUCOSE 96 mg/dL (74-104); LIPASE 128 U/L (11-82); POTASSIUM 3.8 mmol/L (3.5-4.5); SODIUM 137 mmol/L (135-145); TOTAL PROTEIN 7.4 g/dL (6.4-8.9)
[2023-02-13 16:42] VITALS: BP 124/74
--- NOTE | 2023-02-13 16:54 | Ultrasound Report ---
PROCEDURE: Abdomen Limited INDICATIONS: mild pancreatitis TECHNIQUE: Real-time focused scanning was performed of the abdomen, with image documentation. COMPARISONS: CT abdomen pelvis 05/12/2021 FINDINGS: Liver: Increased liver echogenicity, commonly mild hepatic steatosis. Gallbladder: Unremarkable. Biliary ducts: Intrahepatic bile ducts are non-dilated. Extrahepatic bile duct caliber measures 2 m m. Normal is 6-7 mm or less in diameter, or 10 mm or less post-cholecystectomy. Pancreas: Visualized portions of the pancreas are sonographically normal. Right kidney: Normal in size and echotexture. Right kidney measures 9.8 cm long. No hydronephrosis o r nephrolithiasis. No solid masses. No complex renal cystic lesions which require follow-up. Aorta: Visualized aorta is normal in caliber at less than 3 cm. IVC: Intrahepatic inferior vena cava is patent. Miscellaneous: No free abdominal fluid. IMPRESSION: 1. No cholelithiasis identified. 2.. The liver is echogenic, a nonspecific finding commonly seen in the setting of steatosis. Reviewed by: Matty Gutierres MD on 02/13/2023 4:53 PM PDT Approved by: Matty Gutierres MD on 02/13/2023 4:53 PM PDT Station ID: [id number]
== END 2023-02-13 16:40 | disposition home or self-care (01) ==
LOC: ED 14:20
DX: R07.9 Chest pain, unspecified (principal); Z87.891 Personal history of nicotine dependence
CPT/HCPCS: 36415; 80053; 83690; 84484; 85025; 85379; 93005; 96374; 99283

== ENCOUNTER 2023-03-18 08:00 | Outpatient (CLI) | payer BC ==
[2023-03-18 18:21] LABS: BILIRUBIN,URINE NEGATIVE (NEGATIVE); GLUCOSE, URINE (UA) 100 mg/dL (NEGATIVE); KETONES,URINE (UA) NEGATIVE (NEGATIVE); LEUKOCYTE ESTERASE, URINE LARGE (NEGATIVE); NITRITE,URINE POSITIVE (NEGATIVE); OCCULT BLOOD,URINE LARGE (NEGATIVE); PROTEIN,URINE 30 mg/dL (NEGATIVE); UROBILINOGEN,URINE 1 (NORMAL) E.U./dL (NORMAL)
[2023-03-18 18:39] LABS: CLARITY,URINE HAZY (CLEAR)
[2023-03-18 18:46] LABS: WBC,URINE >25 /HPF (0-5)
[2023-03-18 18:47] LABS: BACTERIA,URINE Few /HPF (None Seen); SQUAMOUS EPITHELIAL CELL,UR RARE Squamous (<= Few)
== END 2023-03-18 23:59 | disposition home or self-care (01) ==
LOC: LAB.WCP 08:00
PROVIDERS: ATTEND Nurse Practitioner
DX: N39.0 Urinary tract infection, site not specified (principal)
CPT/HCPCS: 81001; 87086

== ENCOUNTER 2023-05-05 16:06 | Outpatient (CLI) | payer BC ==
[2023-05-05 16:28] LABS: BASOPHILS # (AUTO) 0.1 10^3/uL (0.0-0.1); BASOPHILS % (AUTO) 0.8 %; EOSINOPHILS # (AUTO) 0.3 10^3/uL (0.0-0.7); EOSINOPHILS % (AUTO) 4.5 %; HCT - HEMATOCRIT 38.7 % (37.0-47.0); HGB - HEMOGLOBIN 12.5 g/dL (12.0-16.0); LYMPHOCYTES # (AUTO) 2.5 10^3/uL (1.5-3.5); LYMPHOCYTES % (AUTO) 35.2 %; MEAN CORPUSCULAR HEMOGLOBIN 30.6 pg (27.0-31.0); MEAN CORPUSCULAR HGB CONC 32.3 g/dL (32.0-36.0); MEAN CORPUSCULAR VOLUME 94.9 fL (81.0-99.0); MEAN PLATELET VOLUME 9.4 fL (7.9-10.8); MONOCYTES # (AUTO) 0.5 10^3/uL (0.0-1.0); MONOCYTES % (AUTO) 7.2 %; NEUTROPHILS # (AUTO) 3.7 10^3/uL (1.5-6.6); PLT - PLATELET COUNT 368 10^3/uL (130-450); RED BLOOD COUNT 4.08 10^6/uL (4.20-5.40); RED CELL DISTRIBUTION WIDTH 13.1 % (12.0-15.0); WHITE BLOOD COUNT 7.1 x10^3/uL (4.8-10.8)
[2023-05-05 16:46] LABS: ALBUMIN 4.5 g/dL (3.2-5.5); ALBUMIN/GLOBULIN RATIO 1.7 (1.0-2.2); BILIRUBIN,TOTAL 0.2 mg/dL (0.2-1.0); CALCIUM 9.6 mg/dL (8.5-10.3); CREATININE 0.7 mg/dL (0.6-1.3); TOTAL PROTEIN 7.1 g/dL (6.4-8.9)
== END 2023-05-05 16:07 | disposition home or self-care (01) ==
LOC: LAB 16:06
PROVIDERS: ATTEND Nurse Practitioner
DX: R10.13 Epigastric pain (principal); R74.8 Abnormal levels of other serum enzymes; N39.0 Urinary tract infection, site not specified; J06.9 Acute upper respiratory infection, unspecified
CPT/HCPCS: 36415; 80053; 82150; 83690; 85025

== ENCOUNTER 2023-09-10 15:24 | Outpatient (CLI) | payer BC ==
--- NOTE | 2023-09-10 15:58 | DEXA Report ---
PROCEDURE: Dexa Spine and/or Hip INDICATIONS: AT RISK FOR BONE LOSS TECHNIQUE: Dual energy x-ray absorptiometry (DXA) was performed on a [employer] System. Regions measur ed are the AP Spine, femoral neck, and if needed forearm. COMPARISON: 09/18/2022 FINDINGS: Lumbar Spine: Bone Mineral Density: 1.13 g/cm/cm,T score: -0.4. Previously -1.1 Left Femoral Neck: Bone Mineral Density: 0.67 g/cm/cm, T score: -2.6, previously -2.8. Left Hip: Bone Mineral Density: 0.73 g/cm/cm,T score: -2.2. Previously -2.3 (T score greater or equal to -1.0: NORMAL) (T score from -1.1 to -2.4: OSTEOPENIA) (T score less than or equal to -2.5 to: OSTEOPOROSIS) Impression: By WHO criteria, this patient has osteoporosis. Interval statistical increase in bone mineral density of the lumbar spine. No statistical interval ch jessica in bone mineral density of the hip. Patients with diagnosis of osteoporosis or osteopenia should have regular bone mineral density assess ment. For those eligible for Medicare, routine testing is allowed once every 2 years. Testing frequ ency can be increased for patients who have rapidly progressing disease or for those who are receivin g medical therapy to restore bone mass. Reviewed by: Kobi Gutierrez MD on 09/10/2023 3:57 PM PST Approved by: Kobi Gutierrez MD on 09/10/2023 3:57 PM PST Station ID: [id number]
== END 2023-09-10 15:25 | disposition home or self-care (01) ==
LOC: DI 15:24
PROVIDERS: ATTEND Registered Nurse
DX: M81.0 Age-related osteoporosis without current pathological fracture (principal)

== ENCOUNTER 2023-09-25 16:12 | Outpatient (CLI) | payer BC ==
--- NOTE | 2023-09-25 17:09 | XRAY Report ---
PROCEDURE: Ankle 3+V RT INDICATIONS: RIGHT ANKLE PAIN TECHNIQUE: 3 views of the ankle were acquired. COMPARISON: None. FINDINGS: Bones: No fractures or dislocations. Ankle mortise is normally aligned. No suspicious bony lesions . Soft tissues: No tibiotalar joint effusion. Achilles tendon appears normal. IMPRESSION: No acute bony abnormality. Ankle mortise is congruent. No gross soft tissue abnormalities. Reviewed by: Juvenal Roche MD on 09/25/2023 5:08 PM PDT Approved by: Juvenal Roche MD on 09/25/2023 5:08 PM PDT Station ID: [id number]
== END 2023-09-25 16:13 | disposition home or self-care (01) ==
LOC: DI 16:12
PROVIDERS: ATTEND Nurse Practitioner
DX: M25.571 Pain in right ankle and joints of right foot (principal)